=== PATIENT | female | born 1940 | race Two or more races ===

== ENCOUNTER 2018-01-22 10:42 | Emergency (ER) | payer OTHER ==
[~2018-01-22] VITALS: Ht 165.1 cm; Wt 64.9 kg
[2018-01-22] MEDS ORDERED: SIMVASTATIN40 MG (10:48)
[2018-01-22] MEDS ORDERED: COZAAR50 MG (10:48)
[2018-01-22] MEDS ORDERED: METOPROLOL SUC100 MG (10:48)
[2018-01-22] MEDS ORDERED: METFORMIN HCL500 MG (10:48)
== END 2018-01-22 13:23 | disposition home or self-care (01) ==
LOC: ER 10:42
DX: K29.60 Other gastritis without bleeding (principal)

== ENCOUNTER 2018-05-04 09:23 | Emergency (ER) | payer OTHER ==
[~2018-05-04] VITALS: Ht 165.1 cm; Wt 65.8 kg
[~2018-05-04 09:23] MED LIST: COZAAR50 MG; METFORMIN HCL500 MG; METOPROLOL SUC100 MG; SIMVASTATIN40 MG
== END 2018-05-04 12:01 | disposition home or self-care (01) ==
LOC: ER 09:23
DX: S71.151A Open bite, right thigh, initial encounter (principal); W54.0XXA Bitten by dog, initial encounter; Y93.89 Activity, other specified; Y92.488 Other paved roadways as the place of occurrence of the external cause; Y99.8 Other external cause status

== ENCOUNTER → 2020-10-26 | Emergency (ER) | payer OTHER ==
[~2020-10-26] VITALS: Ht 157.5 cm; Wt 66.2 kg
== END | disposition designated cancer center or children's hospital (05) ==
LOC: ER 09:24
DX: I61.5 Nontraumatic intracerebral hemorrhage, intraventricular (principal); K29.70 Gastritis, unspecified, without bleeding; Z11.52 Encounter for screening for COVID-19

== ENCOUNTER 2021-08-25 11:42 | Outpatient (CLI) | payer OTHER | END 2021-08-25 11:45 | disposition home or self-care (01) | LOC: LAB 11:42 | PROVIDERS: ATTEND Internal Medicine Cardiovascular Disease | DX: Z20.822 Contact with and (suspected) exposure to COVID-19 (principal) ==

== ENCOUNTER 2022-07-15 11:16 | Emergency (ER) | payer OTHER ==
[~2022-07-15] VITALS: Ht 160 cm; Wt 59.0 kg
[2022-07-15] MEDS ORDERED: CRESTOR10 MG PO (11:32)
[2022-07-15] MEDS ORDERED: CHLORTHALIDONE25 MG PO (11:33)
[2022-07-15] MEDS ORDERED: NIFEDIPINE20 MG PO (11:33)
[2022-07-15] MEDS ORDERED: NORFLEX100MG PO (11:42)
[2022-07-15] MEDS ORDERED: KETO10TA2 PO (11:42)
== END 2022-07-15 12:15 | disposition home or self-care (01) ==
LOC: ER 11:16
DX: M54.41 Lumbago with sciatica, right side (principal)

== ENCOUNTER 2023-07-13 12:09 | Outpatient (CLI) | payer OTHER ==
[~2023-07-13 12:09] MED LIST changes: +CHLORTHALIDONE25 MG PO; +CRESTOR10 MG PO; +KETO10TA2 PO; +NIFEDIPINE20 MG PO; +NORFLEX100MG PO
== END 2023-07-13 13:36 | disposition home or self-care (01) ==
LOC: TOM 12:09
PROVIDERS: ATTEND Internal Medicine Cardiovascular Disease
DX: I63.50 Cerebral infarction due to unspecified occlusion or stenosis of unspecified cerebral artery (principal)